=== PATIENT | male | born 1995 | race African-American/Black ===

== ENCOUNTER 2020-01-01 22:25 | Emergency (ER) | payer MEDICAID, OTHER ==
[~2020-01-01] VITALS: Ht 195.5 cm; Wt 145.1 kg
[2020-01-01] MEDS ORDERED: NS IV 1000 ML 1,000 ML IV SCH (23:47)
[2020-01-02] MEDS ORDERED: ACYCLOVIR 400 MG TABLET (ZOVIRAX) PO ONE
[2020-01-02] MEDS ORDERED: KETOROLAC 30 MG/ML VIAL IVP ONE
[2020-01-02] MEDS ORDERED: LIDOCAINE 2% VISCOUS 15 ML UDC PO ONE
[2020-01-02 00:26] LABS: BASOPHILS % (AUTO) 0 % (0-10); EOSINOPHILS # (AUTO) 0.6 10^3/uL (0.0-0.3); EOSINOPHILS % (AUTO) 6 % (0-10); HEMATOCRIT 49 % (40-54); HEMOGLOBIN 17.7 G/DL (13.3-17.7); LYMPHOCYTES # (AUTO) 1.8 X 10^3 (1.0-4.0); LYMPHOCYTES % (AUTO) 17 % (12-44); MEAN CORPUSCULAR HEMOGLOBIN 31 PG (25-34); MEAN CORPUSCULAR HGB CONC 36 G/DL (32-36); MEAN CORPUSCULAR VOLUME 86 FL (80-99); MEAN PLATELET VOLUME 9.3 FL (7.4-10.4); MONOCYTES # (AUTO) 1.1 X 10^3 (0.0-1.0); MONOCYTES % (AUTO) 10 % (0-12); NEUTROPHILS # (AUTO) 7.1 X 10^3 (1.8-7.8); NEUTROPHILS % (AUTO) 66 % (42-75); PLATELET COUNT 301 10^3/uL (130-400); WHITE BLOOD COUNT 10.7 10^3/uL (4.3-11.0)
[2020-01-02 00:38] LABS: ALBUMIN 4.5 GM/DL (3.2-4.5); CHLORIDE 101 MMOL/L (98-107); POTASSIUM 4.2 MMOL/L (3.6-5.0); SODIUM 139 MMOL/L (135-145)
[2020-01-02 00:39] LABS: CALCIUM 10.1 MG/DL (8.5-10.1)
[2020-01-02 00:40] LABS: GLUCOSE 90 MG/DL (70-105)
[2020-01-02 00:41] LABS: TOTAL PROTEIN 8.9 GM/DL (6.4-8.2)
[2020-01-02 00:42] LABS: BILIRUBIN,TOTAL 0.8 MG/DL (0.1-1.0); CARBON DIOXIDE 25 MMOL/L (21-32)
[2020-01-02 00:44] LABS: ALKALINE PHOSPHATASE 95 U/L (40-136); CREATININE SERUM 1.29 MG/DL (0.60-1.30); GFR ESTIMATED > 60
[2020-01-02 00:45] LABS: BUN/CREATININE RATIO 6
[2020-01-02 00:47] LABS: ALANINE AMINOTRANSFERASE 22 U/L (0-55)
[2020-01-02] MEDS ORDERED: fentaNYL INJECTION 100 MCG/2 ML AMP IVP ONE (01:45)
[2020-01-02] MEDS ORDERED: AZITHROMYCIN 250 MG TAB (ZITHROMAX) PO ONE (02:15)
--- NOTE | 2020-01-02 02:21 | ED General ---
General Chief Complaint: Oral/Throat Problems Stated Complaint: FEVER / TONSILITIS Nursing Triage Note: PATIENT STATES THAT HIS THROAT BEGAN HURTING ON 12/29 AND HE HAS RAN A FEVER OFF AND ON AND LAST TOOK TYLENOL AT 1500. Nursing Sepsis Screen: Possible Severe Sepsis Risk Source of Information: Patient Exam Limitations: No Limitations History of Present Illness Date Seen by Provider: January 01, 2020 Time Seen by Provider: 22:28 Initial Comments This 24-year-old young man presents to the emergency room with fever up to 103 and severe sore throat that started 5 days ago. He denies other symptoms such as myalgia, cough, etc. He has been traveling in [place] recently and is visiting the area. He has no known coded exposures. He is spitting out yellow exudative material and has a raw appearing oropharynx and lips with oozing blood. He does admit to recent oral sex but states he has been monogamous with the same partner for a year. Allergies and Home Medications Allergies Coded Allergies: No Known Drug Allergies (Unverified , 01/01/20) Home Medications Acyclovir 400 Mg Tablet, 400 MG PO 5XD Prescribed by: JOVON GREEN on 01/02/20222 Cefdinir 300 Mg Capsule, 300 MG PO BID Prescribed by: JOVON GREEN on 01/02/20222 Hydrocodone/Acetaminophen 1 Each Tablet, 1 EACH PO Q4H PRN for PAIN-MODERATE (5- 7) Prescribed by: JOVON GREEN on 01/02/20222 [Viscous Lidocaine 2%] , 5 ML PO Q1HR PRN for PAIN-BREAKTHROUGH Prescribed by: JOVON GREEN on 01/02/20228 Patient Home Medication List Home Medication List Reviewed: Yes Review of Systems Review of Systems Constitutional: see HPI EENTM: see HPI Respiratory: no symptoms reported Cardiovascular: no symptoms reported Gastrointestinal: no symptoms reported Genitourinary: no symptoms reported Musculoskeletal: no symptoms reported Skin: no symptoms reported Psychiatric/Neurological: No Symptoms Reported Hematologic/Lymphatic: No Symptoms Reported Immunological/Allergic: no symptoms reported Past Lzwidlb-Ffhocm-Ungwpf Hx Past Med/Social Hx: Reviewed Nursing Past Med/Soc Hx Patient Social History Alcohol Use: Denies Use Recreational Drug Use: Yes Drug of Choice: MARIJUANA Smoking Status: Never a Smoker Recent Foreign Travel: No Contact w/Someone Who Travel: No Recent Infectious Disease Expo: No Recent Hopitalizations: No Physical Abuse: No Sexual Abuse: No Mistreated: No Fear: No Seasonal Allergies Seasonal Allergies: No Past Medical History Surgeries: Yes (DENTAL) Respiratory: No Cardiac: No Neurological: No Genitourinary: No Gastrointestinal: No Musculoskeletal: No Endocrine: No HEENT: No Cancer: No Psychosocial: No Blood Disorders: No Adverse Reaction/Blood Tranf: No Physical Exam Vital Signs Vital Signs - First Documented 01/01/20 01/01/20 22:37 22:43 Temp 39.5 Pulse 105 Resp 22 B/P (MAP) 124/96 Pulse Ox 95 O2 Delivery Room Air Capillary Refill : Less Than 3 Seconds Height, Weight, BMI Height: '" Weight: lbs. oz. kg; 37.00 BMI Method: General Appearance: WD/WN, Mild Distress HEENT: PERRL/EOMI, TMs Normal, Normal ENT Inspection, Moist Mucous Membranes, Pharyngeal Erythema, Tonsillar Exudate, Tonsillar Enlargement, Other (oral mucosa including the lips is inflamed with leukoplakia and cracked bloody lips. Oropharynx is erythematous and swollen with extensive white patches and yellowish exudate. Mild scleral erythema) Neck: Normal Inspection, Tender Lateral Respiratory: Lungs Clear, Normal Breath Sounds, No Accessory Muscle Use, No Respiratory Distress Cardiovascular: No Edema, No Murmur, Tachycardia Gastrointestinal: Non Tender, Soft Extremity: Normal Inspection, No Pedal Edema Neurologic/Psychiatric: Alert, Oriented x3, No Motor/Sensory Deficits, Normal Mood/Affect, conservator artifacts II-XII Norm as Tested Skin: Normal Color, Warm/Dry Focused Exam Lactate Level 01/02/20 00:40: Lactic Acid Level 0.99 Lactic Acid Level Laboratory Tests Test 01/02/20 00:40 Lactic Acid Level 0.99 MMOL/L (0.50-2.00) Progress/Results/Core Measures Suspected Sepsis Recent Fever Within 48 Hours: Yes Infection Criteria Present: Suspected New Infection New/Unexplained Altered Menta: No Sepsis Screen: Possible Severe Sepsis Risk SIRS Temperature: Pulse: 105 Respiratory Rate: 18 Laboratory Tests 01/02/20 00:13: White Blood Count 10.7 Blood Pressure 124 /96 Mean: 105 01/02/20 00:40: Lactic Acid Level 0.99 Laboratory Tests 01/02/20 00:13: Creatinine 1.29, Platelet Count 301, Total Bilirubin 0.8 Results/Orders Lab Results Laboratory Tests Test 01/01/20 22:32 01/01/20 22:40 01/02/20 00:13 01/02/20 00:40 Range/Units Group A Streptococcus Screen NEGATIVE NEGATIVE White Blood Count 10.7 4.3-11.0 10^3/uL Red Blood Count 5.69 4.35-5.85 10^6/uL Hemoglobin 17.7 13.3-17.7 G/DL Hematocrit 49 40-54 % Mean Corpuscular Volume 86 80-99 FL Mean Corpuscular Hemoglobin 31 25-34 PG Mean Corpuscular Hemoglobin Concent 36 32-36 G/DL Red Cell Distribution Width 13.0 10.0-14.5 % Platelet Count 301 130-400 10^3/uL Mean Platelet Volume 9.3 7.4-10.4 FL Neutrophils (%) (Auto) 66 42-75 % Lymphocytes (%) (Auto) 17 12-44 % Monocytes (%) (Auto) 10 0-12 % Eosinophils (%) (Auto) 6 0-10 % Basophils (%) (Auto) 0 0-10 % Neutrophils # (Auto) 7.1 1.8-7.8 X 10^3 Lymphocytes # (Auto) 1.8 1.0-4.0 X 10^3 Monocytes # (Auto) 1.1 H 0.0-1.0 X 10^3 Eosinophils # (Auto) 0.6 H 0.0-0.3 10^3/uL Basophils # (Auto) 0.0 0.0-0.1 10^3/uL Sodium Level 139 135-145 MMOL/L Potassium Level 4.2 3.6-5.0 MMOL/L Chloride Level 101 98-107 MMOL/L Carbon Dioxide Level 25 21-32 MMOL/L Anion Gap 13 5-14 MMOL/L Blood Urea Nitrogen 8 7-18 MG/DL Creatinine 1.29 0.60-1.30 MG/DL Estimat Glomerular Filtration Rate > 60 BUN/Creatinine Ratio 6 Glucose Level 90 70-105 MG/DL Calcium Level 10.1 8.5-10.1 MG/DL Corrected Calcium 9.7 8.5-10.1 MG/DL Total Bilirubin 0.8 0.1-1.0 MG/DL Aspartate Amino Transf (AST/SGOT) 17 5-34 U/L Alanine Aminotransferase (ALT/SGPT) 22 0-55 U/L Alkaline Phosphatase 95 40-136 U/L C-Reactive Protein High Sensitivity 8.74 H 0.00-0.50 MG/DL Total Protein 8.9 H 6.4-8.2 GM/DL Albumin 4.5 3.2-4.5 GM/DL Lactic Acid Level 0.99 0.50-2.00 MMOL/L My Orders Orders - JOVON VELASQUEZ MD Rapid Strep A Screen (01/01/20 22:28) Cbc With Automated Diff (01/01/20 23:47) Comprehensive Metabolic Panel (01/01/20 23:47) Hs C Reactive Protein (01/01/20 23:47) Lactic Acid Analyzer (01/01/20 23:47) Ketorolac Injection (Toradol Injection) (01/02/20 00:00) Blood Culture (01/01/20 23:47) Lidocaine 2% Viscous 15 Ml (Xylocaine Vi (01/02/20 00:00) Acyclovir Capsule/Tablet (Zovirax Caps (01/02/20 00:00) Gc & Chlamydia Rect/Throat/Eye (01/01/20 23:47) Virus Culture (01/01/20 23:47) Ed Iv/Invasive Line Start (01/01/20 23:47) Ns Iv 1000 Ml (Sodium Chloride 0.9%) (01/01/20 23:47) Fentanyl Injection (Sublimaze Injection (01/02/20 01:45) Azithromycin Tablet (Zithromax Tablet) (01/02/20 02:15) Medications Given in ED Current Medications Medications Dose Ordered Sig/Trevon Route Start Time Stop Time Status Last Admin Dose Admin Acyclovir 800 mg ONCE ONCE PO 01/02/20 00:00 01/02/20 00:01 DC 01/02/20 01:03 800 MG Azithromycin 1,000 mg ONCE ONCE PO 01/02/20 02:15 01/02/20 02:16 DC 01/02/20 02:19 1,000 MG Fentanyl Citrate 100 mcg ONCE ONCE IVP 01/02/20 01:45 01/02/20 01:46 DC 01/02/20 01:54 100 MCG Ketorolac Tromethamine 30 mg ONCE ONCE IVP 01/02/20 00:00 01/02/20 00:01 DC 01/02/20 00:52 30 MG Lidocaine HCl 5 ml ONCE ONCE PO 01/02/20 00:00 01/02/20 00:01 DC 01/02/20 01:03 5 ML Vital Signs/I&O 01/01/20 01/01/20 22:37 22:43 Temp 39.5 39.5 Pulse 105 105 Resp 22 18 B/P (MAP) 124/96 124/96 (105) Pulse Ox 95 O2 Delivery Room Air Capillary Refill : Less Than 3 Seconds Blood Pressure Mean: 105 Progress Note : Progress Note Oral lesions were suspicious for atypical infection such as herpes, gonorrhea, or chlamydia. GC and chlamydia probe was collected along with a viral culture. Rapid strep test was negative. Patient was treated with Toradol and IV fluids with improvement in symptoms. He was noted to still be rather hypertensive. He was further treated with fentanyl which resolved his hypertension. He was then able to drink and take his pills including azithromycin and acyclovir. Rocephin was also given for empiric treatment. Departure Impression Primary Impression: Pharyngitis Qualified Codes: J02.9 - Acute pharyngitis, unspecified Additional Impressions: Stomatitis Febrile illness Disposition: HOME, SELF-CARE Condition: Improved Departure-Patient Inst. Decision time for Depature: 02:16 Referrals: UNKNOWN (PCP/Family) Primary Care Physician Patient Instructions: STD Prevention, Sore Throat in Adults Add. Discharge Instructions: Complete the 10 days of antibiotics and 7 days of antiviral medication as prescribed. For primary pain control take ibuprofen up to 600 mg every 6 hours as needed. Add hydrocodone and/or the viscous lidocaine solution as directed. You may swish the lidocaine around in your mouth and apply to lips every hour as needed. The cause of your symptoms is uncertain at this time but may be related to bacterial infection, viral infection, herpes outbreak, or sexually transmitted illness. Culture results will likely help determine the exact cause. Please exercise extreme caution with hygiene such as washing your hands and avoiding sharing drinks, towels, etc. Avoid sexual contact of any kind until your cultures are reviewed and you are cleared by a physician. Drink plenty of clear liquids. Start with a clear liquid diet and gradually advance your diet with small quantities of soft bland food as tolerated. Return to the emergency room or call your doctor if you have any further problems or concerns. With treatment your symptoms should gradually improve over the next 3-4 days. All discharge instructions reviewed with patient and/or family. Voiced understanding. Scripts [Viscous Lidocaine 2%] No Conflict Check 5 ML PO Q1HR PRN for PAIN-BREAKTHROUGH, #60 ML Prov: JOVON VELASQUEZ MD 01/02/20 Cefdinir (Cefdinir) 300 Mg Capsule 300 MG PO BID, #20 CAP Prov: JOVON VELASQUEZ MD 01/02/20 Acyclovir (Acyclovir) 400 Mg Tablet 400 MG PO 5XD, #35 TAB Prov: JOVON VELASQUEZ MD 01/02/20 Hydrocodone/Acetaminophen (Hydrocodone-Acetamin 5-325 mg) 1 Each Tablet 1 EACH PO Q4H PRN for PAIN-MODERATE (5-7), #10 TAB Prov: JOVON VELASQUEZ MD 01/02/20 JOVON VELASQUEZ MD January 02, 2020 02:21
[2020-01-02] MEDS ORDERED: ACYC400T PO (02:23)
[2020-01-02] MEDS ORDERED: CEFD300C3 PO (02:23)
[2020-01-02] MEDS ORDERED: HYDR-83 PO (02:23)
[2020-01-02] MEDS ORDERED: Viscous Lidocaine 2% PO (02:29)
[2020-01-02 02:45] VITALS: BP 140/86
== END 2020-01-02 02:47 | disposition home or self-care (01) ==
LOC: ER 22:27
DX: J02.9 Acute pharyngitis, unspecified (principal); K12.1 Other forms of stomatitis
CPT/HCPCS: 36415; 80053; 83605; 85025; 86141; 87040; 87252; 87430; 87491; 87591